=== PATIENT | female | born 1990 | race Caucasian/White ===

== ENCOUNTER 2016-07-01 19:22 | Emergency (ER) | payer OTHER ==
[~2016-07-01] VITALS: Ht 182.8 cm; Wt 78.9 kg
[~2016-07-01 19:22] MED LIST: AMOXICILLIN500 MG PO; FERROUS SULFAT325 M1 PO; MACROBID100 M1 PO; NORCO 325 MG-51 TAB PO; PRENATAL1 TA7 PO; ULTRAM50 MG PO
[2016-07-01] MEDS ORDERED: VOLTAREN50 M1 PO (19:59)
[2016-07-01] MEDS ORDERED: AMOXICILLIN500 M2 PO (19:59)
== END 2016-07-01 19:45 | disposition home or self-care (01) ==
LOC: ED 19:22
DX: K08.89 Other specified disorders of teeth and supporting structures (principal); Z79.899 Other long term (current) drug therapy

== ENCOUNTER 2019-01-03 12:09 | Emergency (ER) | payer OTHER ==
[~2019-01-03] VITALS: Ht 175.2 cm; Wt 81.6 kg
[~2019-01-03 12:09] MED LIST changes: +AMOXICILLIN500 M2 PO; +VOLTAREN50 M1 PO
== END 2019-01-03 14:16 | disposition home or self-care (01) ==
LOC: ED 12:09
DX: S41.112A Laceration without foreign body of left upper arm, initial encounter (principal); W45.8XXA Other foreign body or object entering through skin, initial encounter; Y93.89 Activity, other specified; Y92.89 Other specified places as the place of occurrence of the external cause; Y99.0 Civilian activity done for income or pay

== ENCOUNTER 2020-02-21 09:02 | Emergency (ER) | payer OTHER ==
[~2020-02-21] VITALS: Ht 182.8 cm; Wt 81.6 kg
== END 2020-02-21 09:37 | disposition home or self-care (01) ==
LOC: ED 09:02
DX: H10.89 Other conjunctivitis (principal)

== ENCOUNTER → 2021-05-03 | Outpatient (CLI) | payer OTHER | END | disposition home or self-care (01) | LOC: US 14:20 | PROVIDERS: ATTEND Nurse Practitioner Women's Health | DX: Z34.81 Encounter for supervision of other normal pregnancy, first trimester (principal); Z3A.12 12 weeks gestation of pregnancy ==

== ENCOUNTER → 2021-06-22 | Outpatient (CLI) | payer OTHER | END | disposition home or self-care (01) | LOC: US 12:53 | PROVIDERS: ATTEND Nurse Practitioner Women's Health | DX: Z34.82 Encounter for supervision of other normal pregnancy, second trimester (principal); Z3A.19 19 weeks gestation of pregnancy ==

== ENCOUNTER 2022-07-23 10:39 | Emergency (ER) | payer OTHER | END 2022-07-23 11:38 | disposition left against medical advice (07) | LOC: ED 10:39 | DX: K08.89 Other specified disorders of teeth and supporting structures (principal); Z53.21 Procedure and treatment not carried out due to patient leaving prior to being seen by health care provider ==

== ENCOUNTER 2023-05-26 19:45 | Emergency (ER) | payer OTHER ==
[2023-05-26] MEDS ORDERED: methylPREDNISolone sod succ 125 MG VIAL IM ONE (21:30)
[2023-05-26] MEDS ORDERED: ZITHROMAX250 MG PO (21:32)
[2023-05-26] MEDS ORDERED: PREDNISONE20 M1 PO (21:32)
== END 2023-05-26 22:09 | disposition home or self-care (01) ==
LOC: ED 19:45
DX: B34.9 Viral infection, unspecified (principal); Z20.822 Contact with and (suspected) exposure to COVID-19

== ENCOUNTER 2024-01-27 11:08 | Emergency (ER) | payer SELFPAY ==
[~2024-01-27] VITALS: Ht 175.2 cm; Wt 88.5 kg
[~2024-01-27 11:08] MED LIST changes: +PREDNISONE20 M1 PO; +ZITHROMAX250 MG PO
[2024-01-27] MEDS ORDERED: ASPIRIN, CHEWABLE 81 MG TAB PO ONE (11:40)
[2024-01-27 11:51] LABS: BASO % 0.8 % (0.0-1.0); EOS # 0.2 10*3/uL (0.0-0.4); EOS % 4.6 % (1.0-4.0); HEMATOCRIT 36.5 % (37.0-47.0); LYMPH # 1.4 10*3/uL (1.3-4.4); LYMPH % 27.4 % (27.0-41.0); MEAN CELL VOLUME 89.7 fl (81.0-99.0); MEAN CORPUSCULAR HGB 29.7 pg (27.0-31.0); MEAN CORPUSCULAR HGB CONC 33.2 g/dl (33.0-37.0); MEAN PLATELET VOLUME 10.3 fl (9.6-12.3); MONO # 0.4 10*3/uL (0.1-1.0); MONO % 7.5 % (3.0-9.0); NEUT % 59.5 % (47.0-73.0); PLATELET COUNT AUTOMATED 198 10*3/uL (130-400); RED BLOOD COUNT 4.07 10*6/uL (4.10-5.10); RED CELL DISTRI WIDTH 11.7 % (0-14.5)
[2024-01-27 12:08] LABS: ALKALINE PHOSPHATASE 80 U/L (46-116); BUN 12 mg/dl (9-23); CHLORIDE 107 mmol/L (98-107); POTASSIUM 3.8 mmol/L (3.4-5.1); SGPT/ALT 13 U/L (5-49)
[2024-01-27 12:24] LABS: ACT PARTIAL THROMBO TIME 29.7 SECONDS (20.0-32.1)
[2024-01-27] MEDS ORDERED: MG-AL HYDROXIDE/SIMETICONE 30 ML UDC PO STA (12:24)
[2024-01-27] MEDS ORDERED: Dicyclomine Hydrochloride 20 MG/10 ML OSYR PO STA (12:24)
[2024-01-27] MEDS ORDERED: Lidocaine Hydrochloride 15 ML UDC PO STA (12:24)
[2024-01-27] MEDS ORDERED: PEPCID20 MG PO (14:18)
[2024-01-27] MEDS ORDERED: FAMOTIDINE 20 MG TAB PO ONE (14:20)
== END 2024-01-27 14:48 | disposition home or self-care (01) ==
LOC: ED 11:08
PROVIDERS: Nurse Practitioner
DX: K21.9 Gastro-esophageal reflux disease without esophagitis (principal); M79.602 Pain in left arm

== ENCOUNTER 2024-05-24 17:55 | Emergency (ER) | payer OTHER ==
[~2024-05-24] VITALS: Ht 182.8 cm; Wt 95.3 kg
[~2024-05-24 17:55] MED LIST changes: +PEPCID20 MG PO
[2024-05-24] MEDS ORDERED: SODIUM CHLORIDE 0.9% 500 ML IV ONE (18:20)
[2024-05-24] MEDS ORDERED: Ondansetron Hydrochloride 4 MG/2 ML VIAL IV ONE (18:20)
[2024-05-24] MEDS ORDERED: IOHEXOL 300 MG/ML 100 ML VIAL IV ONE (18:40)
[2024-05-24 18:50] LABS: BILIRUBIN Negative (Negative); BLOOD Trace-Intact (Negative); CLARITY Clear (Clear); COLOR Yellow (Yellow); GLUCOSE Negative (Negative); KETONE Trace (Negative); LEUKO ESTERASE Negative (Negative); NITRITE Negative (Negative); SPECIFIC GRAVITY 1.025 (1.001-1.030)
[2024-05-24 18:57] LABS: URINE AMPHETAMINES Negative (1000ng/ml); URINE BARBITURATES Negative (200ng/ml); URINE BENZODIAZEPINES Negative (200ng/ml); URINE CANNABINOIDS (THC) Negative (50ng/ml); URINE COCAINE Negative (300ng/ml); URINE METHADONE Negative (300ng/ml); URINE OPIATES Negative (300ng/ml); URINE PHENCYCLIDINE Negative (25ng/ml)
[2024-05-24 18:59] LABS: HYALINE CAST 0-2; MUCOUS 2+
[2024-05-24 19:03] LABS: BASO % 0.3 % (0.0-1.0); EOS # 0.2 10*3/uL (0.0-0.4); EOS % 2.8 % (1.0-4.0); HEMATOCRIT 38.9 % (37.0-47.0); MEAN CORPUSCULAR HGB 28.8 pg (27.0-31.0); MEAN CORPUSCULAR HGB CONC 32.4 g/dl (33.0-37.0); MEAN PLATELET VOLUME 10.3 fl (9.6-12.3); MONO # 0.5 10*3/uL (0.1-1.0); MONO % 7.6 % (3.0-9.0); NEUT # 4.1 10*3/uL (2.3-7.9); NEUT % 60.8 % (47.0-73.0); PLATELET COUNT AUTOMATED 205 10*3/uL (130-400); RED BLOOD COUNT 4.37 10*6/uL (4.10-5.10); RED CELL DISTRI WIDTH 11.9 % (0-14.5); WHITE BLOOD COUNT 6.7 10*3/uL (4.8-10.8)
[2024-05-24 19:24] LABS: ALKALINE PHOSPHATASE 84 U/L (46-116); BUN 11 mg/dl (9-23); CHLORIDE 105 mmol/L (98-107); LIPASE 36 U/L (12-53); POTASSIUM 3.6 mmol/L (3.4-5.1); SGPT/ALT 25 U/L (5-49)
[2024-05-24] MEDS ORDERED: Ketorolac Tromethamine 30 MG/ML VIAL IV ONE (20:45)
== END 2024-05-24 23:55 | disposition home or self-care (01) ==
LOC: ED 17:55
PROVIDERS: Internal Medicine
DX: R10.30 Lower abdominal pain, unspecified (principal); R11.2 Nausea with vomiting, unspecified; Z79.899 Other long term (current) drug therapy

== ENCOUNTER 2024-07-16 23:55 | Emergency (ER) | payer OTHER ==
[~2024-07-16] VITALS: Ht 175.2 cm; Wt 95.3 kg
[2024-07-17 00:23] LABS: BASO % 0.4 % (0.0-1.0); EOS # 0.3 10*3/uL (0.0-0.4); EOS % 3.4 % (1.0-4.0); HEMATOCRIT 36.6 % (37.0-47.0); MEAN CELL VOLUME 89.1 fl (81.0-99.0); MEAN CORPUSCULAR HGB 29.7 pg (27.0-31.0); MEAN CORPUSCULAR HGB CONC 33.3 g/dl (33.0-37.0); MEAN PLATELET VOLUME 10.1 fl (9.6-12.3); MONO # 0.5 10*3/uL (0.1-1.0); MONO % 7.2 % (3.0-9.0); NEUT # 4.5 10*3/uL (2.3-7.9); NEUT % 61.7 % (47.0-73.0); PLATELET COUNT AUTOMATED 203 10*3/uL (130-400); RED BLOOD COUNT 4.11 10*6/uL (4.10-5.10); RED CELL DISTRI WIDTH 11.9 % (0-14.5); WHITE BLOOD COUNT 7.3 10*3/uL (4.8-10.8)
[2024-07-17 00:44] LABS: ALKALINE PHOSPHATASE 80 U/L (46-116); BUN 12 mg/dl (9-23); CHLORIDE 105 mmol/L (98-107); LIPASE 34 U/L (12-53); POTASSIUM 4.1 mmol/L (3.4-5.1); SGPT/ALT 16 U/L (5-49); TOTAL PROTEIN 7.2 gm/dL (6.0-8.0)
[2024-07-17] MEDS ORDERED: Ketorolac Tromethamine 60 MG/2 ML VIAL IM ONE (02:05)
== END 2024-07-17 02:21 | disposition home or self-care (01) ==
LOC: ED 23:55
PROVIDERS: Internal Medicine
DX: K59.00 Constipation, unspecified (principal); R14.1 Gas pain